=== PATIENT | female | born 1990 | race Caucasian/White ===

== ENCOUNTER 2020-12-13 15:57 | Observation (INO) | payer SELFPAY ==
[~2020-12-13] VITALS: Ht 175.3 cm; Wt 90.7 kg
[2020-12-13 16:49] LABS: APPEARANCE,URINE Clear (CLEAR); BILIRUBIN,URINE Negative (NEGATIVE); COLOR,URINE Yellow (YELLOW); GLUCOSE, URINE (UA) Negative (NEGATIVE); KETONES,URINE Negative (NEGATIVE); LEUKOCYTE ESTERASE ,URINE Moderate (NEGATIVE); NITRATE,URINE Negative (NEGATIVE); OCCULT BLOOD,URINE Negative (NEGATIVE); PROTEIN,URINE Negative (NEGATIVE); UROBILINOGEN,URINE 0.2 mg/dL (0.2-1.0)
[2020-12-13 17:01] LABS: BACTERIA,URINE Few /HPF (None Seen); RBC,URINE 0-1 /HPF (0-1); SQUAMOUS EPITHELIAL CELL,UR Few /HPF (0-2)
== END 2020-12-13 18:05 | disposition home or self-care (01) ==
LOC: EDH 15:57 → LDH 15:58
PROVIDERS: ADMIT Obstetrics & Gynecology; ATTEND Obstetrics & Gynecology
DX: O62.9 Abnormality of forces of labor, unspecified (principal); Z86.718 Personal history of other venous thrombosis and embolism; Z79.899 Other long term (current) drug therapy; Z3A.38 38 weeks gestation of pregnancy
CPT/HCPCS: 59025; 81001; 87088; 99284; G0378 ×2

== ENCOUNTER 2020-12-16 13:59 | Inpatient (IN) | payer SELFPAY ==
[2020-12-16] MEDS ORDERED: LACTATED RINGERS 1000ML 1,000 ML IV ONE (15:10)
[2020-12-16] MEDS ORDERED: LACTATED RINGERS 500 ML 500 ML IV PRN (15:15)
[2020-12-16] MEDS ORDERED: NALOXONE HCL 0.4 MG/1 ML ML IV PRN (15:15)
[2020-12-16] MEDS ORDERED: EPHEDRINE SULFATE 50 MG/ML AMPULE IVP PRN (15:15)
[2020-12-16] MEDS ORDERED: LACTATED RINGERS 1000ML 1,000 ML IV PRN (15:15)
[2020-12-16 15:19] LABS: HEMATOCRIT 34.8 % (36-48); MEAN CORPUSCULAR HEMOGLOBIN 33.2 pg (27.0-33.0); MEAN CORPUSCULAR HGB CONC 34.8 g/dL (32.0-36.0); MEAN CORPUSCULAR VOLUME 95.6 fL (79-99); RED BLOOD CELL COUNT(AUTO) 3.64 MIL/uL (4.00-5.50); RED CELL DISTRIBUTION WIDTH 12.7 % (11.0-15.5); WHITE BLOOD COUNT (AUTO) 8.2 K/uL (4.8-10.8)
[2020-12-16 15:28] LABS: APPEARANCE,URINE Clear (CLEAR); BILIRUBIN,URINE Negative (NEGATIVE); COLOR,URINE Yellow (YELLOW); GLUCOSE, URINE (UA) Negative (NEGATIVE); KETONES,URINE Negative (NEGATIVE); LEUKOCYTE ESTERASE ,URINE Large (NEGATIVE); NITRATE,URINE Negative (NEGATIVE); OCCULT BLOOD,URINE Negative (NEGATIVE); PROTEIN,URINE Negative (NEGATIVE); UROBILINOGEN,URINE 0.2 mg/dL (0.2-1.0)
[2020-12-16] MEDS ORDERED: EPHEDRINE SULFATE 50 MG/ML AMPULE ONE (15:32)
[2020-12-16 15:48] LABS: BACTERIA,URINE Rare /HPF (None Seen); RBC,URINE None Seen /HPF (0-1)
[2020-12-16 15:49] LABS: SQUAMOUS EPITHELIAL CELL,UR 0-2 /HPF (0-2)
[2020-12-16] MEDS ORDERED: AMPICILLIN 2GM+NS 100ML 100 ML IV SCH (16:00)
[2020-12-16] MEDS ORDERED: AMPICILLIN 1GM+NS 50ML 50 ML IV SCH (22:00)
[2020-12-17] MEDS ORDERED: OXYTOCIN-LR 20 UNITS/1000 ML 1,000 ML IV SCH ×3 (05:00→16:45)
[2020-12-17 07:53] LABS: RAPID PLASMA REAGIN NONREACTIVE (NONREACTIVE)
[2020-12-17] MEDS ORDERED: MISOPROSTOL 200 MCG TABLET ONE (15:11)
[2020-12-17] MEDS ORDERED: LIDOCAINE HCL 1% 20 ML VIAL ONE (15:12)
[2020-12-17] MEDS ORDERED: DIPH,PERTUSS(ACELL),TET VAC/PF 0.5 ML VIAL IM PRN (16:45)
[2020-12-17] MEDS ORDERED: ACETAMINOPHEN-CODEINE 300/30MG TAB PO PRN ×2 (16:45)
[2020-12-17] MEDS ORDERED: LANOLIN 30GM OINTMENT TP PRN ×2 (16:45)
[2020-12-17] MEDS ORDERED: WITCH HAZEL 1 PAD TP PRN ×2 (16:45)
[2020-12-17] MEDS ORDERED: MEASLES/MUMPS/RUBELLA VACCINE, LIVE 0.5 ML/VIAL SQ PRN (16:45)
[2020-12-17] MEDS ORDERED: IBUPROFEN 600 MG TABLET PO PRN (16:45)
[2020-12-17] MEDS ORDERED: BENZOCAINE/LANOLIN/ALOE VERA 60 ML AEROSOL TP PRN ×2 (16:45)
[2020-12-17] MEDS ORDERED: ACETAMINOPHEN 325 MG TAB PO PRN ×2 (16:45)
[2020-12-17] MEDS ORDERED: MISOPROSTOL 200 MCG TABLET VG SCH (17:00)
[2020-12-17] MEDS ORDERED: MEPERIDINE-PF 25 MG/ML SYG ONE (17:04)
[2020-12-17] MEDS: IBUPROFEN 600 MG TABLET PO PRN (17:33)
[2020-12-17] MEDS ORDERED: DOCUSATE SODIUM 100 MG CAP PO SCH (21:00)
[2020-12-17] MEDS: DOCUSATE SODIUM 100 MG CAP PO SCH (21:32)
[2020-12-17 22:15] VITALS: BP 148/65
[2020-12-17 23:57] VITALS: BP 136/89
[2020-12-18] MEDS ORDERED: PROG100C11 PO (01:44)
[2020-12-18] MEDS ORDERED: PREN-154 PO (01:45)
[2020-12-18] MEDS ORDERED: AEC81 PO (01:46)
[2020-12-18] MEDS ORDERED: ENOX40DI8 SQ (01:48)
[2020-12-18 03:42] VITALS: BP 140/84
[2020-12-18] MEDS: IBUPROFEN 600 MG TABLET PO PRN ×2 (04:59→11:43)
[2020-12-18 06:13] LABS: HEMATOCRIT 30.1 % (36-48); MEAN CORPUSCULAR HEMOGLOBIN 32.2 pg (27.0-33.0); MEAN CORPUSCULAR HGB CONC 33.9 g/dL (32.0-36.0); RED BLOOD CELL COUNT(AUTO) 3.17 MIL/uL (4.00-5.50); RED CELL DISTRIBUTION WIDTH 12.7 % (11.0-15.5); WHITE BLOOD COUNT (AUTO) 15.1 K/uL (4.8-10.8)
[2020-12-18 07:18] VITALS: BP 125/79
[2020-12-18] MEDS: DOCUSATE SODIUM 100 MG CAP PO SCH (09:38)
[2020-12-18 11:06] VITALS: BP 135/87
[2020-12-18 13:13] LABS: HEPATITIS Bs ANTIGEN SCREEN P Negative (Negative)
== END 2020-12-18 15:15 | disposition home or self-care (01) | DRG 805 ==
LOC: LDH 13:59 → WSH 12-18
PROVIDERS: ADMIT Obstetrics & Gynecology; ATTEND Obstetrics & Gynecology
PROC: 10E0XZZ Delivery of Products of Conception, External Approach (ICD-10-PCS; principal; 2020-12-17)
PROC: 0KQM0ZZ Repair Perineum Muscle, Open Approach (ICD-10-PCS; 2020-12-17)
PROC: 3E0P7VZ Introduction of Hormone into Female Reproductive, Via Natural or Artificial Opening (ICD-10-PCS; 2020-12-17)
PROC: 10907ZC Drainage of Amniotic Fluid, Therapeutic from Products of Conception, Via Natural or Artificial Opening (ICD-10-PCS; 2020-12-17)
PROC: 00HU33Z Insertion of Infusion Device into Spinal Canal, Percutaneous Approach (ICD-10-PCS; 2020-12-17)
PROC: 3E0R3BZ Introduction of Anesthetic Agent into Spinal Canal, Percutaneous Approach (ICD-10-PCS; 2020-12-17)
PROC: 3E0134Z Introduction of Serum, Toxoid and Vaccine into Subcutaneous Tissue, Percutaneous Approach (ICD-10-PCS; 2020-12-17)
PROC: 3E0234Z Introduction of Serum, Toxoid and Vaccine into Muscle, Percutaneous Approach (ICD-10-PCS; 2020-12-17)
PROC: 3E0234Z Introduction of Serum, Toxoid and Vaccine into Muscle, Percutaneous Approach (ICD-10-PCS; 2020-12-18)
DX: O26.62 Liver and biliary tract disorders in childbirth (principal); K83.1 Obstruction of bile duct; Z37.0 Single live birth; D68.62 Lupus anticoagulant syndrome; O99.12 Other diseases of the blood and blood-forming organs and certain disorders involving the immune mechanism complicating childbirth; O70.1 Second degree perineal laceration during delivery; O77.0 Labor and delivery complicated by meconium in amniotic fluid; O62.2 Other uterine inertia; O26.893 Other specified pregnancy related conditions, third trimester; Z3A.36 36 weeks gestation of pregnancy; Z23 Encounter for immunization; Z67.11 Type A blood, Rh negative
CPT/HCPCS: 36415; 81001; 83033; 85027; 86592; 86701; 86850; 86900; 86901; 87340; 87390; A4314; G0378; J2175; J2590; J2791; J3490; J7120